=== PATIENT | male | born 1960 | race African-American/Black ===

== ENCOUNTER 2021-05-11 00:35 | Emergency (ER) | payer OTHER ==
[2021-05-11 01:00] VITALS: BP 127/53; PULSE 78; TEMP 98.3; BMI 23.7
[2021-05-11] MEDS ORDERED: KETOROLAC TROMETHAMINE 15 MG/ML VIAL IVPUSH ONE (01:27)
[2021-05-11] MEDS ORDERED: KETOROLAC TROMETHAMINE 15 MG/ML VIAL ONE (01:35)
== END 2021-05-11 05:36 | disposition home or self-care (01) ==
LOC: JER 00:35
PROC: 3E033GC Introduction of Other Therapeutic Substance into Peripheral Vein, Percutaneous Approach (ICD-10-PCS; principal; 2021-05-11)
DX: K94.09 Other complications of colostomy (principal)
CPT/HCPCS: 99284-25